=== PATIENT | female | born 1975 | race Caucasian/White ===

== ENCOUNTER → 2016-04-21 | Outpatient (CLI) | payer OTHER ==
[~2016-04-21] MED LIST: AMOXICILLIN 50500 MG; CIPRO 500MG TA500 MG PO; FASTIN30 MG PO; IBUPROFEN200 MG PO; LORTAB 5/500 501 TAB PO; MULTIPLE VITAMI1 CAP PO; NORCO 325 MG-51 TAB PO; OXYCODONE H5 MG/5 ML PO; PROTONIX 40MG T40 MG PO; ZITHROMAX 250M250 MG PO; ZOFRAN 4MG T4 MG/TAB PO; ZOFRAN ODT4 MG PO; ZOFRAN ORAL4 MG/5 ML PO; phentermine
[2016-04-21 07:57] LABS: BASO # 0.1 (0.0-0.2); BASO % 0.8 % (0.0-2.0); EOS # 0.1 (0.0-0.7); EOS % 1.1 % (0-4.0); GRAN # 4.6 (1.4-6.5); GRAN % 63.9 % (42.2-75.2); HEMATOCRIT 42.1 % (37.0-47.0); HEMOGLOBIN 13.7 g/dl (12.5-16.0); LYMPH # 1.9 (1.2-3.4); LYMPH % 25.8 % (20.0-51.0); MEAN CELL VOLUME 94 fl (80.0-100.0); MEAN CORPUSCULAR HEMOGLOBIN 31 pg (27.0-31.0); MEAN CORPUSCULAR HGB CONC 33 g/dl (33.0-37.0); MEAN PLATELET VOLUME 9.2 fl (7.4-10.4); MONO # 0.6 (0.1-0.6); PLATELET COUNT 292 K/mm3 (130-400); RED BLOOD COUNT 4.49 M/mm3 (4.10-5.30); REDCELL DISTRIBUTION WIDTH-CV 12.6 % (11.5-14.5); WHITE BLOOD COUNT 7.3 K/mm3 (4.8-10.8)
[2016-04-21 08:31] LABS: TOTAL IRON BINDING CAPACITY 320 ug/dL (265-497)
[2016-04-21 08:57] LABS: FERRITIN 20 ng/mL (6-137)
== END ==
LOC: COL.LAB 07:22
PROVIDERS: Family Medicine
DX: K12.1 Other forms of stomatitis (principal)

== ENCOUNTER 2016-06-24 06:38 | Day surgery (SDC) | payer OTHER ==
[~2016-06-24] VITALS: Ht 161.3 cm; Wt 83.1 kg
[~2016-06-24 06:38] MED LIST changes: -OXYCODONE H5 MG/5 ML PO; -PROTONIX 40MG T40 MG PO; -ZOFRAN ORAL4 MG/5 ML PO
[2016-06-24 07:10] VITALS: BP 128/82; PULSE 71; TEMP 98.5
[2016-06-24 08:14] VITALS: BP 135/90; PULSE 80; TEMP 97.6
[2016-06-24 08:30] VITALS: BP 120/87; PULSE 69
[2016-06-24 08:45] VITALS: BP 123/82; PULSE 73
[2016-06-24] MEDS ORDERED: PROTONIX 40MG T40 MG PO (08:51)
[2016-06-24 09:00] VITALS: BP 118/81; PULSE 68
[2016-06-24 09:13] VITALS: BP 126/89; PULSE 94
[2016-09-15] MEDS ORDERED: OXYCODONE H5 MG/5 ML PO (08:59)
== END 2016-06-24 09:12 | disposition home or self-care (01) ==
LOC: SDCO 06:38
DX: K21.0 Gastro-esophageal reflux disease with esophagitis (principal); K22.2 Esophageal obstruction; R13.12 Dysphagia, oropharyngeal phase; R11.10 Vomiting, unspecified
CPT/HCPCS: OP; C1726; J2250; J3010; J7030

== ENCOUNTER → 2016-06-27 | Outpatient (CLI) | payer OTHER ==
[~2016-06-27] MED LIST changes: +OXYCODONE H5 MG/5 ML PO; +PROTONIX 40MG T40 MG PO; +ZOFRAN ORAL4 MG/5 ML PO
[2016-06-27 09:32] LABS: ADJUSTED CALCIUM 8.9 mg/dL (8.4-10.2); ALBUMIN 4.1 gm/dL (3.5-5.0); BILIRUBIN,TOTAL 0.7 mg/dL (0.0-1.0); CREATININE, serum 0.77 mg/dL (0.52-1.25); POTASSIUM 3.8 mmol/L (3.4-5.0); TOTAL PROTEIN 7.5 gm/dL (6.4-8.2)
[2016-06-27 10:02] LABS: THYROID STIMULATING HORMONE 4.27 uIU/mL (0.465-4.680)
== END ==
LOC: ZCOL.LAB 08:34 → COL.LAB 08:34
PROVIDERS: Physician Assistant
DX: R63.5 Abnormal weight gain (principal)

== ENCOUNTER 2016-08-10 07:08 | Emergency (ER) | payer OTHER ==
[~2016-08-10] VITALS: Ht 162.6 cm; Wt 75.9 kg
[~2016-08-10 07:08] MED LIST changes: -OXYCODONE H5 MG/5 ML PO; -ZOFRAN ORAL4 MG/5 ML PO
[2016-08-10 07:11] VITALS: TEMP 97.8
[2016-08-10 07:56] LABS: BASO # 0.1 (0.0-0.2); BASO % 0.7 % (0.0-2.0); EOS # 0.1 (0.0-0.7); EOS % 1.3 % (0-4.0); GRAN # 6.4 (1.4-6.5); GRAN % 70.6 % (42.2-75.2); HEMATOCRIT 43.3 % (37.0-47.0); HEMOGLOBIN 14.4 g/dl (12.5-16.0); LYMPH # 1.7 (1.2-3.4); LYMPH % 18.5 % (20.0-51.0); MEAN CELL VOLUME 94 fl (80.0-100.0); MEAN CORPUSCULAR HEMOGLOBIN 31 pg (27.0-31.0); MEAN CORPUSCULAR HGB CONC 33 g/dl (33.0-37.0); MEAN PLATELET VOLUME 9.8 fl (7.4-10.4); MONO # 0.8 (0.1-0.6); MONO % 8.6 % (1.7-9.3); PLATELET COUNT 301 K/mm3 (130-400); REDCELL DISTRIBUTION WIDTH-CV 13.2 % (11.5-14.5)
[2016-08-10 08:10] LABS: ADJUSTED CALCIUM 9.1 mg/dL (8.4-10.2); ALBUMIN 4.2 gm/dL (3.5-5.0); BILIRUBIN,TOTAL 0.6 mg/dL (0.0-1.0); C-REACTIVE PROTEIN 0.6 mg/dL (0.0-0.9); CALCIUM 9.3 mg/dL (8.4-10.2); CREATININE, serum 0.8 mg/dL (0.52-1.25); POTASSIUM 4.2 mmol/L (3.4-5.0); TOTAL PROTEIN 7.4 gm/dL (6.4-8.2)
[2016-08-10 08:50] LABS: PH 5 (5-8); URINE APPEARANCE Hazy; URINE BACTERIA Rare /hpf; URINE BILIRUBIN Negative (NEGATIVE); URINE BLOOD Negative (NEGATIVE); URINE COLOR Yellow; URINE GLUCOSE Negative (NEGATIVE); URINE KETONE Negative (NEGATIVE); URINE RBC 0-2 /hpf; URINE UROBILINOGEN Negative (NEGATIVE); URINE WBC 0-2 /hpf
[2016-08-10] MEDS ORDERED: NORCO 325 MG-51 TAB PO (09:43)
[2016-08-10] MEDS ORDERED: ZOFRAN 4MG T4 MG/TAB PO (09:43)
[2016-08-10 10:09] VITALS: BP 132/89; PULSE 71
[2016-09-15] MEDS ORDERED: OXYCODONE H5 MG/5 ML PO (08:59)
== END 2016-08-10 10:04 | disposition home or self-care (01) ==
LOC: COL.ER 07:08
PROVIDERS: Emergency Medicine
DX: R10.31 Right lower quadrant pain (principal); R11.10 Vomiting, unspecified; R63.0 Anorexia; R10.2 Pelvic and perineal pain
CPT/HCPCS: J1170; J1200; J2405; J2930; J7030

== ENCOUNTER → 2016-08-18 | Outpatient (CLI) | payer OTHER ==
[~2016-08-18] MED LIST changes: +OXYCODONE H5 MG/5 ML PO; +ZOFRAN ORAL4 MG/5 ML PO
[2016-08-18 23:51] LABS: FOLLICLE STIMULATING HORMONE 2.8 mIU/mL (()); LUTENIZING HORMONE 1.8 mIU/mL (())
== END ==
LOC: COL.LAB 07:17
PROVIDERS: Physician Assistant
DX: N83.209 Unspecified ovarian cyst, unspecified side (principal); R63.5 Abnormal weight gain

== ENCOUNTER 2016-09-15 15:09 | Day surgery (SDC) | payer OTHER ==
[~2016-09-15] VITALS: Ht 162.6 cm; Wt 83.3 kg
[~2016-09-15 15:09] MED LIST changes: -ZOFRAN ORAL4 MG/5 ML PO
[2016-09-15 18:00] VITALS: BP 111/58; PULSE 68; TEMP 98
[2016-09-15 18:15] VITALS: BP 102/65; PULSE 67; TEMP 98
[2016-09-15] MEDS ORDERED: ZOFRAN ORAL4 MG/5 ML PO (18:21)
[2016-09-15 18:30] VITALS: BP 110/62; PULSE 69; TEMP 98
[2016-09-15 18:45] VITALS: BP 119/63; PULSE 69
[2016-09-15 19:15] VITALS: BP 104/62; PULSE 71
== END 2016-09-15 21:14 | disposition home or self-care (01) ==
LOC: COL.ER 15:09 → SDCO 17:55 → SURG 17:56 → SDCO 21:14
DX: J95.830 Postprocedural hemorrhage of a respiratory system organ or structure following a respiratory system procedure (principal); J03.91 Acute recurrent tonsillitis, unspecified; K21.9 Gastro-esophageal reflux disease without esophagitis
CPT/HCPCS: OP; J0330; J2405; J2550; J2704; J2710; J3010

== ENCOUNTER → 2016-09-15 | Day surgery (SDC) | payer OTHER ==
[2016-09-15] VITALS (10 sets, daily range): BP systolic 110–138; BP diastolic 69–83; PULSE 58–77; TEMP 98.1–99.4
[~2016-09-15] VITALS: Ht 162.6 cm; Wt 83.5 kg
== END | disposition home or self-care (01) ==
LOC: SDCO 05:38
DX: J03.91 Acute recurrent tonsillitis, unspecified (principal); J35.01 Chronic tonsillitis; K21.9 Gastro-esophageal reflux disease without esophagitis
CPT/HCPCS: OP; J0330; J1100; J1170; J2405; J2550; J2704; J2710; J2765; J3010; J7120

== ENCOUNTER 2016-10-06 11:43 | Emergency (ER) | payer OTHER ==
[~2016-10-06] VITALS: Ht 160 cm; Wt 76.8 kg
[~2016-10-06 11:43] MED LIST changes: +ZOFRAN ORAL4 MG/5 ML PO
[2016-10-06 11:53] VITALS: TEMP 98.4
[2016-10-06 14:09] VITALS: BP 121/82; PULSE 84
== END 2016-10-06 14:10 | disposition home or self-care (01) ==
LOC: COL.ER 11:43
DX: S60.852A Superficial foreign body of left wrist, initial encounter (principal); W45.8XXA Other foreign body or object entering through skin, initial encounter; W25.XXXA Contact with sharp glass, initial encounter; Y92.009 Unspecified place in unspecified non-institutional (private) residence as the place of occurrence of the external cause

== ENCOUNTER → 2017-03-01 | Outpatient (REF) | LOC: WSOH 09:14 | DX: Z02.1 Encounter for pre-employment examination (principal) ==

== ENCOUNTER 2017-06-22 11:40 | Emergency (ER) | payer BC ==
[~2017-06-22] VITALS: Ht 160 cm; Wt 81.8 kg
[2017-06-22 11:43] VITALS: TEMP 99
[2017-06-22] MEDS ORDERED: MULTI VITAMINS1 TAB PO (11:46)
[2017-06-22] MEDS ORDERED: OMEGA-31 SGL PO (11:46)
[2017-06-22] MEDS ORDERED: ADDERALL5 MG PO (11:46)
[2017-06-22 13:02] LABS: COLLECTION METHOD CLEAN CATCH
[2017-06-22 13:12] LABS: BASO # 0.1 (0.0-0.2); EOS # 0.2 (0.0-0.7); EOS % 2.4 % (0-4.0); GRAN % 64.5 % (42.2-75.2); HEMATOCRIT 44.5 % (37.0-47.0); HEMOGLOBIN 14.7 g/dl (12.5-16.0); LYMPH # 1.6 (1.2-3.4); LYMPH % 25.1 % (20.0-51.0); MEAN CELL VOLUME 92 fl (80.0-100.0); MEAN CORPUSCULAR HEMOGLOBIN 31 pg (27.0-31.0); MEAN CORPUSCULAR HGB CONC 33 g/dl (33.0-37.0); MEAN PLATELET VOLUME 9.1 fl (7.4-10.4); MONO # 0.4 (0.1-0.6); MONO % 6.8 % (1.7-9.3); PLATELET COUNT 307 K/mm3 (130-400); RED BLOOD COUNT 4.82 M/mm3 (4.10-5.30); REDCELL DISTRIBUTION WIDTH-CV 12.4 % (11.5-14.5)
[2017-06-22 13:19] LABS: ALANINE AMINOTRANSFERASE 34 U/L (9-52); ALBUMIN 4.7 gm/dL (3.5-5.0); ALKALINE PHOSPHATASE 65 U/L (50-136); ANION GAP 9 mmol/L (7-16); AST,SGOT 25 U/L (15-37); BILIRUBIN,TOTAL 0.7 mg/dL (0.0-1.0); BLOOD UREA NITROGEN 11 mg/dL (7-17); C-REACTIVE PROTEIN < 0.5 mg/dL (0.0-0.9); CALCIUM 9.5 mg/dL (8.4-10.2); CARBON DIOXIDE 26 mmol/L (22-30); CHLORIDE 103 mmol/L (98-107); CREATININE, serum 0.76 mg/dL (0.52-1.25); GLUCOSE 93 mg/dL (74-106); SODIUM 138 mmol/L (137-145); TOTAL PROTEIN 7.8 gm/dL (6.4-8.2)
[2017-06-22 13:20] LABS: PH 5 (5-8); SQUAMOUS EPITHELIAL 0-2 /hpf; URINE APPEARANCE Clear; URINE BACTERIA None Seen /hpf; URINE BILIRUBIN Negative (NEGATIVE); URINE BLOOD Negative (NEGATIVE); URINE COLOR Straw; URINE GLUCOSE Negative (NEGATIVE); URINE KETONE Negative (NEGATIVE); URINE LEUKOCYTE ESTERASE Negative (NEGATIVE); URINE NITRATE Negative (NEGATIVE); URINE PROTEIN(semi-quant) Negative (NEGATIVE); URINE RBC 0-2 /hpf; URINE UROBILINOGEN Negative (NEGATIVE)
[2017-06-22] MEDS ORDERED: NORCO 325 MG-51 TAB PO (13:35)
[2017-06-22] MEDS ORDERED: ZOFRAN ODT4 MG PO (13:35)
[2017-06-22 14:00] VITALS: BP 137/88; PULSE 74
== END 2017-06-22 14:01 | disposition home or self-care (01) ==
LOC: COL.ER 11:40
PROVIDERS: Physician Assistant
DX: R10.31 Right lower quadrant pain (principal); R10.11 Right upper quadrant pain; R10.2 Pelvic and perineal pain; F90.9 Attention-deficit hyperactivity disorder, unspecified type
CPT/HCPCS: J2405; J7030

== ENCOUNTER → 2017-06-23 | Outpatient (CLI) | payer BC ==
[~2017-06-23] MED LIST changes: +ADDERALL5 MG PO; +MULTI VITAMINS1 TAB PO; +OMEGA-31 SGL PO
[2017-06-23 16:15] LABS: BASO % 0.6 % (0.0-2.0); EOS # 0.1 (0.0-0.7); EOS % 1.9 % (0-4.0); GRAN # 4.7 (1.4-6.5); GRAN % 68.2 % (42.2-75.2); HEMATOCRIT 42.2 % (37.0-47.0); HEMOGLOBIN 13.9 g/dl (12.5-16.0); LYMPH # 1.5 (1.2-3.4); MEAN CELL VOLUME 93 fl (80.0-100.0); MEAN CORPUSCULAR HEMOGLOBIN 31 pg (27.0-31.0); MEAN CORPUSCULAR HGB CONC 33 g/dl (33.0-37.0); MEAN PLATELET VOLUME 9.4 fl (7.4-10.4); MONO # 0.5 (0.1-0.6); MONO % 7.2 % (1.7-9.3); PLATELET COUNT 317 K/mm3 (130-400); RED BLOOD COUNT 4.53 M/mm3 (4.10-5.30); REDCELL DISTRIBUTION WIDTH-CV 12.5 % (11.5-14.5)
== END ==
LOC: COL.LAB 09:35
PROVIDERS: Family Medicine
DX: R10.31 Right lower quadrant pain (principal)

== ENCOUNTER 2017-06-25 03:08 | Emergency (ER) | payer BC ==
[~2017-06-25] VITALS: Ht 162.6 cm; Wt 81.8 kg
[2017-06-25 03:18] VITALS: TEMP 97.7
[2017-06-25 03:52] LABS: BASO # 0.1 (0.0-0.2); BASO % 0.8 % (0.0-2.0); EOS # 0.2 (0.0-0.7); EOS % 2.1 % (0-4.0); GRAN # 5.1 (1.4-6.5); GRAN % 60.6 % (42.2-75.2); HEMATOCRIT 40.2 % (37.0-47.0); HEMOGLOBIN 13.5 g/dl (12.5-16.0); LYMPH # 2.3 (1.2-3.4); MEAN CELL VOLUME 92 fl (80.0-100.0); MEAN CORPUSCULAR HEMOGLOBIN 31 pg (27.0-31.0); MEAN CORPUSCULAR HGB CONC 34 g/dl (33.0-37.0); MEAN PLATELET VOLUME 9.1 fl (7.4-10.4); MONO # 0.8 (0.1-0.6); MONO % 9.1 % (1.7-9.3); PLATELET COUNT 277 K/mm3 (130-400); RED BLOOD COUNT 4.38 M/mm3 (4.10-5.30); REDCELL DISTRIBUTION WIDTH-CV 12.4 % (11.5-14.5)
[2017-06-25 04:05] LABS: ALANINE AMINOTRANSFERASE 40 U/L (9-52); ALBUMIN 4.2 gm/dL (3.5-5.0); ALKALINE PHOSPHATASE 60 U/L (50-136); ANION GAP 13 mmol/L (7-16); AST,SGOT 25 U/L (15-37); BILIRUBIN,TOTAL 0.3 mg/dL (0.0-1.0); BLOOD UREA NITROGEN 17 mg/dL (7-17); CALCIUM 9.2 mg/dL (8.4-10.2); CARBON DIOXIDE 24 mmol/L (22-30); CHLORIDE 106 mmol/L (98-107); CREATININE, serum 0.72 mg/dL (0.52-1.25); GLUCOSE 100 mg/dL (74-106); POTASSIUM 4.1 mmol/L (3.4-5.0); SODIUM 142 mmol/L (137-145); TOTAL PROTEIN 7.1 gm/dL (6.4-8.2)
[2017-06-25 04:06] LABS: C-REACTIVE PROTEIN < 0.5 mg/dL (0.0-0.9)
[2017-06-25 04:08] LABS: COLLECTION METHOD CLEAN CATCH
[2017-06-25 04:12] VITALS: BP 132/78
[2017-06-25 04:15] LABS: MUCOUS Present /lpf; PH 5 (5-8); SQUAMOUS EPITHELIAL 0-2 /hpf; URINE APPEARANCE Clear; URINE BACTERIA None Seen /hpf; URINE BILIRUBIN Negative (NEGATIVE); URINE BLOOD Negative (NEGATIVE); URINE COLOR Yellow; URINE GLUCOSE Negative (NEGATIVE); URINE KETONE Negative (NEGATIVE); URINE LEUKOCYTE ESTERASE Negative (NEGATIVE); URINE NITRATE Negative (NEGATIVE); URINE PROTEIN(semi-quant) Negative (NEGATIVE); URINE RBC 0-2 /hpf
[2017-06-25 05:44] VITALS: PULSE 85
== END 2017-06-25 05:44 | disposition home or self-care (01) ==
LOC: COL.ER 03:08
PROVIDERS: Physician Assistant
DX: R10.31 Right lower quadrant pain (principal)
CPT/HCPCS: J2270; J2405; J7030

== ENCOUNTER → 2017-07-13 | Outpatient (CLI) | payer BC ==
[2017-07-13 17:08] LABS: ALBUMIN 4.1 gm/dL (3.5-5.0); BILIRUBIN,TOTAL 0.8 mg/dL (0.0-1.0); CALCIUM 9.2 mg/dL (8.4-10.2); CHOLESTEROL RISK RATIO 4.2; CREATININE, serum 0.78 mg/dL (0.52-1.25); POTASSIUM 4.1 mmol/L (3.4-5.0); TOTAL PROTEIN 7.5 gm/dL (6.4-8.2)
[2017-07-13 17:35] LABS: THYROID STIMULATING HORMONE 2.44 uIU/mL (0.465-4.680)
== END ==
LOC: COL.LAB 09:18
PROVIDERS: Family Medicine
DX: Z13.220 Encounter for screening for lipoid disorders (principal); R42 Dizziness and giddiness; Z88.0 Allergy status to penicillin; Z91.041 Radiographic dye allergy status

== ENCOUNTER → 2017-07-19 | Outpatient (CLI) | payer BC ==
[2017-07-19 12:53] LABS: BASO # 0.1 (0.0-0.2); EOS # 0.1 (0.0-0.7); EOS % 1.7 % (0-4.0); GRAN # 4.8 (1.4-6.5); GRAN % 66.9 % (42.2-75.2); HEMATOCRIT 41.8 % (37.0-47.0); HEMOGLOBIN 13.9 g/dl (12.5-16.0); LYMPH # 1.7 (1.2-3.4); LYMPH % 23.5 % (20.0-51.0); MEAN CELL VOLUME 92 fl (80.0-100.0); MEAN CORPUSCULAR HEMOGLOBIN 31 pg (27.0-31.0); MEAN CORPUSCULAR HGB CONC 33 g/dl (33.0-37.0); MEAN PLATELET VOLUME 8.8 fl (7.4-10.4); MONO # 0.5 (0.1-0.6); MONO % 6.6 % (1.7-9.3); PLATELET COUNT 306 K/mm3 (130-400); RED BLOOD COUNT 4.56 M/mm3 (4.10-5.30); REDCELL DISTRIBUTION WIDTH-CV 12.7 % (11.5-14.5)
[2017-07-19 13:03] LABS: ALBUMIN 4.1 gm/dL (3.5-5.0); BILIRUBIN,TOTAL 0.6 mg/dL (0.0-1.0); CALCIUM 8.8 mg/dL (8.4-10.2); CREATININE, serum 0.7 mg/dL (0.52-1.25); POTASSIUM 3.9 mmol/L (3.4-5.0); TOTAL PROTEIN 7.7 gm/dL (6.4-8.2)
== END ==
LOC: COL.RAD 12:17
PROVIDERS: Family Medicine
DX: R10.9 Unspecified abdominal pain (principal)

== ENCOUNTER → 2017-08-24 | Outpatient (CLI) | payer BC ==
[2017-08-25 15:02] LABS: PH 6 (5-8); SQUAMOUS EPITHELIAL 0-2 /hpf; URINE APPEARANCE Clear; URINE BACTERIA Rare /hpf; URINE BILIRUBIN Negative (NEGATIVE); URINE BLOOD 3+ (NEGATIVE); URINE COLOR Straw; URINE GLUCOSE Negative (NEGATIVE); URINE KETONE Negative (NEGATIVE); URINE LEUKOCYTE ESTERASE 2+ (NEGATIVE); URINE NITRATE Negative (NEGATIVE); URINE PROTEIN(semi-quant) Negative (NEGATIVE); URINE RBC 0-2 /hpf; URINE UROBILINOGEN Negative (NEGATIVE)
[2017-08-25 15:26] LABS: COLLECTION METHOD CLEAN CATCH
== END ==
LOC: COL.LAB 15:26
PROVIDERS: Family Medicine
DX: N39.0 Urinary tract infection, site not specified (principal)

== ENCOUNTER → 2017-11-09 | Outpatient (CLI) | payer OTHER ==
[~2017-11-09] MED LIST changes: +OMNICEF 300MG300 MG PO
== END ==
LOC: COL.LAB 09:08
DX: R82.90 Unspecified abnormal findings in urine (principal); R10.9 Unspecified abdominal pain

== ENCOUNTER → 2017-11-09 | Outpatient (CLI) | payer OTHER | LOC: COL.LAB 09:17 | DX: Z01.89 Encounter for other specified special examinations (principal) ==

== ENCOUNTER 2017-11-10 00:57 | Emergency (ER) | payer OTHER ==
[~2017-11-10] VITALS: Ht 160 cm; Wt 72.7 kg
[~2017-11-10 00:57] MED LIST changes: -OMNICEF 300MG300 MG PO
[2017-11-10 01:03] VITALS: BP 146/94; TEMP 97.7
[2017-11-10 01:15] LABS: COLLECTION METHOD CLEAN CATCH
[2017-11-10 01:25] LABS: PH 5 (5-8); SQUAMOUS EPITHELIAL 0-2 /hpf; URINE APPEARANCE Clear; URINE BACTERIA Rare /hpf; URINE BILIRUBIN Negative (NEGATIVE); URINE BLOOD Negative (NEGATIVE); URINE COLOR Straw; URINE GLUCOSE Negative (NEGATIVE); URINE KETONE Negative (NEGATIVE); URINE LEUKOCYTE ESTERASE Trace (NEGATIVE); URINE NITRATE Negative (NEGATIVE); URINE PROTEIN(semi-quant) Negative (NEGATIVE); URINE RBC None Seen /hpf; URINE UROBILINOGEN Negative (NEGATIVE)
[2017-11-10] MEDS ORDERED: OMNICEF 300MG300 MG PO (01:38)
[2017-11-10 01:40] VITALS: PULSE 86
== END 2017-11-10 01:49 | disposition home or self-care (01) ==
LOC: COL.ER 00:57
PROVIDERS: Physician Assistant
DX: N39.0 Urinary tract infection, site not specified (principal); Z86.73 Personal history of transient ischemic attack (TIA), and cerebral infarction without residual deficits; Z98.890 Other specified postprocedural states; Z98.51 Tubal ligation status

== ENCOUNTER → 2017-12-04 | Outpatient (CLI) | payer OTHER ==
[~2017-12-04] MED LIST changes: +OMNICEF 300MG300 MG PO
[2017-12-04 15:42] LABS: COLLECTION METHOD CLEAN CATCH
[2017-12-04 15:48] LABS: PH 5 (5-8); SQUAMOUS EPITHELIAL 0-2 /hpf; URINE APPEARANCE Clear; URINE BACTERIA None Seen /hpf; URINE BILIRUBIN Negative (NEGATIVE); URINE BLOOD Negative (NEGATIVE); URINE COLOR Straw; URINE GLUCOSE Negative (NEGATIVE); URINE KETONE Negative (NEGATIVE); URINE LEUKOCYTE ESTERASE Negative (NEGATIVE); URINE NITRATE Negative (NEGATIVE); URINE PROTEIN(semi-quant) Negative (NEGATIVE); URINE RBC 0-2 /hpf; URINE UROBILINOGEN Negative (NEGATIVE); URINE WBC 0-2 /hpf
== END ==
LOC: COL.LAB 14:06
PROVIDERS: Family Medicine
DX: R30.0 Dysuria (principal)

== ENCOUNTER → 2018-04-30 | Outpatient (CLI) | payer OTHER | LOC: ZCOL.LAB 16:11 | DX: K14.0 Glossitis (principal) ==

== ENCOUNTER → 2018-06-08 | Outpatient (CLI) | payer OTHER | LOC: COL.LAB 08:53 | DX: N23 Unspecified renal colic (principal) ==

== ENCOUNTER 2018-06-10 05:18 | Emergency (ER) | payer OTHER | END 2018-06-10 07:34 | disposition home or self-care (01) | LOC: COL.ER 05:18 | DX: R10.11 Right upper quadrant pain (principal); Z98.51 Tubal ligation status; Z98.890 Other specified postprocedural states ==

== ENCOUNTER → 2018-06-18 | Outpatient (CLI) | payer OTHER | LOC: ZCOL.LAB 12:08 | DX: K14.6 Glossodynia (principal); R10.2 Pelvic and perineal pain ==

== ENCOUNTER → 2019-01-10 | Outpatient (CLI) | payer OTHER | LOC: COL.RAD 13:39 | DX: R05 Cough (principal) ==

== ENCOUNTER 2019-03-10 19:49 | Emergency (ER) | payer OTHER ==
[~2019-03-10] VITALS: Ht 160 cm; Wt 80.5 kg
[2019-03-10 19:51] VITALS: TEMP 97.7
[2019-03-10] MEDS ORDERED: THIAMINE I200 MG/2 M IJ (20:12)
[2019-03-10] MEDS ORDERED: PREDNISONE20 MG PO (22:50)
[2019-03-10 23:23] VITALS: BP 131/84; PULSE 86
== END 2019-03-10 23:23 | disposition home or self-care (01) ==
LOC: COL.ER 19:49
DX: T78.1XXA Other adverse food reactions, not elsewhere classified, initial encounter (principal); K21.9 Gastro-esophageal reflux disease without esophagitis
CPT/HCPCS: J0171; J1200; J7512

== ENCOUNTER 2019-04-03 19:18 | Emergency (ER) | payer OTHER ==
[~2019-04-03] VITALS: Ht 162.6 cm; Wt 75.9 kg
[~2019-04-03 19:18] MED LIST changes: +PREDNISONE20 MG PO; +THIAMINE I200 MG/2 M IJ
[2019-04-03 19:42] VITALS: BP 170/91; PULSE 92; TEMP 98.8
== END 2019-04-03 21:05 | disposition left against medical advice (07) ==
LOC: COL.ER 19:18
DX: R20.2 Paresthesia of skin (principal)

== ENCOUNTER → 2019-04-04 | Outpatient (CLI) | payer OTHER | LOC: COL.RAD 12:01 | DX: S19.9XXA Unspecified injury of neck, initial encounter (principal); M54.2 Cervicalgia ==

== ENCOUNTER 2019-06-02 21:59 | Emergency (ER) | payer OTHER ==
[~2019-06-02] VITALS: Ht 162.6 cm; Wt 68.6 kg
[2019-06-02 22:07] VITALS: TEMP 97.6
[2019-06-02] MEDS ORDERED: ADIPEX-P37.5 MG PO (22:27)
[2019-06-02 22:42] LABS: BASO % 0.6 % (0.0-2.0); EOS # 0.1 (0.0-0.7); EOS % 1.9 % (0-4.0); GRAN # 2.9 (1.4-6.5); GRAN % 56.3 % (42.2-75.2); HEMOGLOBIN 11.8 g/dl (12.5-16.0); LYMPH # 1.5 (1.2-3.4); LYMPH % 28.5 % (20.0-51.0); MEAN CELL VOLUME 90 fl (80.0-100.0); MEAN CORPUSCULAR HEMOGLOBIN 31 pg (27.0-31.0); MEAN CORPUSCULAR HGB CONC 34 g/dl (33.0-37.0); MEAN PLATELET VOLUME 9.6 fl (7.4-10.4); MONO # 0.7 (0.1-0.6); MONO % 12.5 % (1.7-9.3); PLATELET COUNT 205 K/mm3 (130-400); RED BLOOD COUNT 3.84 M/mm3 (4.10-5.30); REDCELL DISTRIBUTION WIDTH-CV 14.5 % (11.5-14.5)
[2019-06-02 22:45] LABS: HEMATOCRIT 34.7 % (37.0-47.0)
[2019-06-02 22:58] LABS: ALANINE AMINOTRANSFERASE 28 U/L (9-52); ALBUMIN 3.5 gm/dL (3.5-5.0); ALKALINE PHOSPHATASE 46 U/L (50-136); ANION GAP 10 mmol/L (7-16); AST,SGOT 33 U/L (15-37); BILIRUBIN,TOTAL 0.3 mg/dL (0.0-1.0); BLOOD UREA NITROGEN 15 mg/dL (7-17); C-REACTIVE PROTEIN 0.6 mg/dL (0.0-0.9); CALCIUM 8.6 mg/dL (8.4-10.2); CARBON DIOXIDE 27 mmol/L (22-30); CHLORIDE 104 mmol/L (98-107); CREATININE, serum 0.46 (0.52-1.25); GLUCOSE 87 mg/dL (74-106); LIPASE 369 U/L (23-300); SODIUM 140 mmol/L (137-145)
[2019-06-02 23:07] LABS: TROPONIN-I < 0.012 ng/mL (0.000-0.035)
[2019-06-03] MEDS ORDERED: K-DUR 10 MEQ T10 MEQ PO (01:12)
[2019-06-03 01:14] VITALS: BP 122/71; PULSE 86
== END 2019-06-03 01:14 | disposition home or self-care (01) ==
LOC: COL.ER 21:59
PROVIDERS: Emergency Medicine
DX: F41.9 Anxiety disorder, unspecified (principal); R20.2 Paresthesia of skin; R47.1 Dysarthria and anarthria; Z98.51 Tubal ligation status
CPT/HCPCS: J7030

== ENCOUNTER 2019-06-04 12:48 | Emergency (ER) | payer OTHER ==
[~2019-06-04] VITALS: Ht 162.6 cm; Wt 68.6 kg
[~2019-06-04 12:48] MED LIST changes: +ADIPEX-P37.5 MG PO; +K-DUR 10 MEQ T10 MEQ PO
[2019-06-04 13:30] VITALS: BP 158/99; TEMP 98.7
[2019-06-04 15:52] LABS: CALCIUM 8.8 mg/dL (8.4-10.2); CREATININE, serum 0.52 (0.52-1.25); POTASSIUM 3.3 mmol/L (3.4-5.0)
[2019-06-04 16:55] VITALS: PULSE 78
== END 2019-06-04 16:55 | disposition home or self-care (01) ==
LOC: COL.ER 12:48
PROVIDERS: Physician Assistant
DX: E87.6 Hypokalemia (principal); F41.9 Anxiety disorder, unspecified; Z98.51 Tubal ligation status; Z79.52 Long term (current) use of systemic steroids

== ENCOUNTER → 2019-06-06 | Outpatient (CLI) | payer OTHER ==
[2019-06-06 12:00] LABS: CALCIUM 8.8 mg/dL (8.4-10.2); CHOLESTEROL RISK RATIO 3.2; CREATININE, serum 0.56 (0.52-1.25); POTASSIUM 3.9 mmol/L (3.4-5.0)
[2019-06-06 12:29] LABS: TSH w REFLEX 2.1 uIU/mL (0.465-4.680)
[2019-06-06 14:04] LABS: ALBUMIN 3.7 gm/dL (3.5-5.0); BILIRUBIN,TOTAL 0.4 mg/dL (0.0-1.0); TOTAL PROTEIN 6.5 gm/dL (6.4-8.2)
== END ==
LOC: COL.LAB 11:19
PROVIDERS: Family Medicine
DX: Z13.220 Encounter for screening for lipoid disorders (principal); R20.2 Paresthesia of skin; K59.01 Slow transit constipation; E87.6 Hypokalemia

== ENCOUNTER 2020-11-13 21:11 | Emergency (ER) | payer OTHER ==
[~2020-11-13] VITALS: Ht 162.6 cm; Wt 66.8 kg
[2020-11-14 00:11] VITALS: BP 148/64; PULSE 80; TEMP 98
== END 2020-11-14 00:14 | disposition home or self-care (01) ==
LOC: COL.ER 21:11
DX: T78.1XXA Other adverse food reactions, not elsewhere classified, initial encounter (principal); Z79.52 Long term (current) use of systemic steroids
CPT/HCPCS: J1200; J2405; J2930; J7030; J7512

== ENCOUNTER → 2021-03-10 | Outpatient (CLI) | payer OTHER | LOC: COL.RAD 10:16 | DX: R10.2 Pelvic and perineal pain (principal); R10.31 Right lower quadrant pain ==

== ENCOUNTER 2022-05-12 21:28 | Emergency (ER) | payer OTHER ==
[~2022-05-12] VITALS: Ht 162.6 cm; Wt 72.3 kg
[2022-05-12 21:31] VITALS: BP 161/94; TEMP 98
[2022-05-12 22:22] VITALS: PULSE 92
== END 2022-05-12 22:22 | disposition home or self-care (01) ==
LOC: COL.ER 21:28
DX: H10.212 Acute toxic conjunctivitis, left eye (principal); Z88.0 Allergy status to penicillin